=== PATIENT | male | born 1990 | race Caucasian/White ===

== ENCOUNTER 2025-02-18 17:29 | Emergency (ER) | payer SELFPAY ==
[2025-02-18 17:38] VITALS: BP 129/88; PULSE 91; RESP 16; TEMP 36.6; O2SAT 100; BMI 32.3
[2025-02-18 18:40] VITALS: BP 130/78; PULSE 85; O2SAT 98
--- NOTE | 2025-02-18 18:40 | PC.NURSE ---
upon arrival to room with patient's medications he states I feel all back to normal now. I don't need those. Per Dr. Butts okay to quiana patient refusal and monitor at this time
--- NOTE | 2025-02-18 18:47 | W.ED.ALLEREA ---
HPI - Allergic Reaction General: Chief complaint: Allergic Reaction Stated complaint: allergic reaction Time Seen by Provider: 02/18/25 18:19 History of Present Illness: HPI narrative: Patient was concerned that he possibly might be having allergic reaction. He is allergic to shrimp and is unsure if he got a hold of some shrimp. Patient gave himself an epi shot and took some Benadryl. Related Data Allergies Allergy/AdvReac Type Severity Reaction Status Date / Time shellfish derived Allergy ALGY-Anaphy Verified 02/18/25 17:43 laxis Review of Systems Const: Denies: fever(s) or chills ENMT: Reports: throat pain Resp: Denies: dyspnea or wheezing Physical Exam Const: COMMON NORMALS: no acute distress, patient oriented x3 and alert HENMT: COMMON NORMALS: moist oral mucous membranes and oropharynx normal Resp: COMMON NORMALS: normal respiratory effort and clear to auscultation bilaterally AUSCULTATION: clear to auscultation bilaterally Cardio: COMMON NORMALS: regular rate and regular rhythm RATE: regular rate RHYTHM: regular rhythm GI: COMMON NORMALS: Soft to palpation and non-tender PALPATION: Yes Soft to palpation : COMMON NORMALS: Yes no CVA tenderness BLADDER/KIDNEY EXAM: Yes no CVA tenderness Back/Pelvis: COMMON NORMALS: no CVA tenderness Extremity: COMMON NORMALS: normal to inspection and full ROM Neuro: COMMON NORMALS: patient oriented x3, moves all extremities and no focal motor deficits SENSORIUM/ORIENTATION: Yes alert Psych: COMMON NORMALS: mental status grossly normal, Normal thought process present and cooperative THOUGHT PROCESS: Normal thought process present Skin: COMMON NORMALS: no rashes or lesions noted and turgor normal GENERAL SKIN EXAM: no rashes or lesions noted and turgor normal Course Vital Signs: Vital signs: Vital Signs Temperature 97.8 F 02/18/25 17:38 Pulse Rate 102 H 02/18/25 19:34 Respiratory Rate 16 02/18/25 19:34 Blood Pressure 120/58 02/18/25 19:34 Pulse Oximetry 92 02/18/25 19:34 Oxygen Delivery Me thod Room Air 02/18/25 19:01 MDM - Allergic Reaction Medical Decision Making Patient had physical exam showed no concerning findings for a significant allergic reaction. Patient initially was very anxious and was hyperventilating. I did obtain labs that showed no acute findings. Patient felt that after he calm down that he did not need any further medications. Patient was then discharged home in stable condition. Lab Data 02/18/25 18:46 02/18/25 18:46 Laboratory Results WBC 6.13 10^3/uL (3.29-11.43) 02/18/25 18:46 RBC 4.59 10^6/uL (3.85-5.65) 02/18/25 18:46 Hgb 13.90 g/dL (11.27-16.99) 02/18/25 18:46 Hct 40.8 % (37-53) 02/18/25 18:46 MCV 88.9 fl (82-101) 02/18/25 18:46 MCH 30.3 pg (27-33) 02/18/25 18:46 MCHC 34.1 g/dL (30-55) 02/18/25 18:46 RDW 13.5 % (12.1-15.1) 02/18/25 18:46 Plt Count 285 10^3/cmm (157-399) 02/18/25 18:46 MPV 9.4 fL (7.4-10.4) 02/18/25 18:46 Neut % (Auto) 72.9 % 02/18/25 18:46 Lymph % (Auto) 19.4 % 02/18/25 18:46 Duval % (Auto) 6.2 % 02/18/25 18:46 Eos % (Auto) 0.5 % 02/18/25 18:46 Baso % (Auto) 0.3 % 02/18/25 18:46 Neut # (Auto) 4.47 10^3/uL (1.8-7.7) 02/18/25 18:46 Lymph # (Auto) 1.2 10^3/uL (0.8-4.8) 02/18/25 18:46 Duval # (Auto) 0.4 10^3/uL (0.2-0.9) 02/18/25 18:46 Eos # (Auto) 0.0 10^3/uL (0.0-0.8) 02/18/25 18:46 Baso # (Auto) 0.0 10^3/uL (0.0-0.1) 02/18/25 18:46 Nucleated RBC % (auto) 0 % 02/18/25 18:46 Nucleated RBCs # 0.0 /100WBC 02/18/25 18:46 Sodium 141 mmol/L (136-145) 02/18/25 18:46 Potassium 3.6 mmol/L (3.5-5.1) 02/18/25 18:46 Chloride 107 mmol/L (98-107) 02/18/25 18:46 Carbon Dioxide 20 mmol/L (22-29) L 02/18/25 18:46 Anion Gap 17.6 (5-19) 02/18/25 18:46 BUN 9 mg/dL (6-20) 02/18/25 18:46 Creatinine 1.0 mg/dL (0.7-1.2) 02/18/25 18:46 GFR Calculation 85.0 mL/min (90-130) L 02/18/25 18:46 Glucose 107 mg/dL (65-115) 02/18/25 18:46 Calculated Osmolality 291 mOsm/kg (285-295) 02/18/25 18:46 Calcium 9.5 mg/dL (8.5-10.5) 02/18/25 18:46 Magnesium 2.0 mg/dL (1.7-2.3) 02/18/25 18:46 Total Bilirubin 0.3 mg/dL (0.15-1.2) 02/18/25 18:46 AST 19 U/L (0-40) 02/18/25 18:46 ALT 33 U/L (0-41) 02/18/25 18:46 Alkaline Phosphatase 66 U/L (40-130) 02/18/25 18:46 Total Protein 7.7 g/dL (6.6-8.7) 02/18/25 18:46 Albumin 4.4 g/dL (3.5-5.2) 02/18/25 18:46 Globulin 3.3 g/dL (1.3-4.6) 02/18/25 18:46 No radiology studies performed this visit Discharge Plan Discharge Patient Disposition: Home Clinical Impression: Allergic reaction Condition: Stable Discharge Orders: Discharge ED (Routine); Ordered 02/18/25 Ordered By: Robert Butts Discharge Diet: Usual diet Discharge Activity: Increase activity as tolerated Patient Instructions: Allergic Reaction, Opioid Safety, Pain Management Activity Restrictions/Additional Instructions: Please take Benadryl 50 mg every 8 hours for the next 24 hours as needed. Also recommend Pepcid 20 mg daily for the next couple days. Return to the ER as needed. Print Language: Finnish Coding Level of Care Code ED Medical Office Administrator for Ghassan Hall
[2025-02-18 18:52] LABS: Basophils % 0.3 %; Eosinophils % 0.5 %; Hematocrit 40.8 % (37-53); Lymphocytes # 1.2 10^3/uL (0.8-4.8); Lymphocytes % 19.4 %; Mean Corpuscular HGB Conc 34.1 g/dL (30-55); Mean Corpuscular Hemoglobin 30.3 pg (27-33); Mean Corpuscular Volume 88.9 fl (82-101); Mean Platelet Volume 9.4 fL (7.4-10.4); Monocytes # 0.4 10^3/uL (0.2-0.9); Monocytes % 6.2 %; Neutrophils # 4.47 10^3/uL (1.8-7.7); Neutrophils % 72.9 %; Nucleated Red Blood Cells % 0 %; Platelet Count 285 10^3/cmm (157-399); Red Blood Count 4.59 10^6/uL (3.85-5.65); Red Cell Distribution Width 13.5 % (12.1-15.1); White Blood Count 6.13 10^3/uL (3.29-11.43)
[2025-02-18 19:01] VITALS: BP 112/63; PULSE 81; RESP 16; O2SAT 94
[2025-02-18 19:11] LABS: Alanine Aminotransferase 33 U/L (0-41); Albumin Level 4.4 g/dL (3.5-5.2); Alkaline Phosphatase 66 U/L (40-130); Anion Gap 17.6 (5-19); Aspartate Amino Transferase 19 U/L (0-40); Blood Urea Nitrogen 9 mg/dL (6-20); Calcium 9.5 mg/dL (8.5-10.5); Carbon Dioxide 20 mmol/L (22-29); Chloride 107 mmol/L (98-107); Creatinine Clr Calc Pharmacy 123.4088; Globulin 3.3 g/dL (1.3-4.6); Glucose 107 mg/dL (65-115); Osmolality Calculated 291 mOsm/kg (285-295); Potassium 3.6 mmol/L (3.5-5.1); Sodium 141 mmol/L (136-145); Total Bilirubin 0.3 mg/dL (0.15-1.2); Total Protein 7.7 g/dL (6.6-8.7)
[2025-02-18 19:34] VITALS: BP 120/58; PULSE 102; RESP 16; O2SAT 92
== END 2025-02-18 19:34 | disposition home or self-care (01) ==
PROVIDERS: Emergency Provider Student in an Organized Health Care Education/Training Program
DX: T78.40XA Allergy, unspecified, initial encounter (principal); X58.XXXA Exposure to other specified factors, initial encounter
CPT/HCPCS: 36415; 80053; 83735; 85025; 99283